=== PATIENT | male | born 1950 | race Caucasian/White ===

== ENCOUNTER → 2023-08-07 08:34 | Outpatient (REF) | payer MEDICARE, OTHER, SELFPAY ==
[2023-08-07 09:10] LABS: % Basophils 0.8 % (0-2); % Eosinophils 3.3 % (0-6); % Immature Granulocytes 0.5 % (0-0.5); % Lymphocytes 19.5 % (20.5-51.1); % Monocytes 9.9 % (1.7-9.3); Absolute Basophils 0.1 10^3/uL (0-0.2); Absolute Eosinophils 0.2 10^3/uL (0-0.7); Absolute Lymphocytes 1.2 10^3/uL (1.2-3.4); Absolute Monocytes 0.6 10^3/uL (0.1-0.6); Absolute Neutrophils 4.1 10^3/uL (1.4-6.5); Hemoglobin 13.3 g/dL (13.0-18.0); Mean Corp Hgb Conc. 34.1 g/dL (33.0-37.0); Mean Corpuscular Hgb 30.4 pg (27.0-31.0); Mean Platelet Volume 8.4 fL (7.4-10.4); Nucleated Red Blood Cells % 0 % (-); Platelet Count 262 10^3/uL (130-400); Red Blood Cell Count 4.38 10^6/uL (4.70-6.10); Red Cell Dist. Width 13.5 % (11.5-14.5); White Blood Cell Count 6.2 10^3/uL (4.8-10.8)
[2023-08-07 10:41] LABS: ALT (SGPT) 39 U/L (0-50); AST (SGOT) 32 U/L (17-59); Albumin 4.4 g/dl (3.5-5.0); Alkaline Phosphatase 86 U/L (38-126); Blood Urea Nitrogen 17 mg/dl (9-20); Calcium 9.6 mg/dl (8.4-10.2); Carbon Dioxide 26 mmol/L (22-30); Chloride 104 mmol/L (98-107); Glucose 121 mg/dl (70-99); HDL Cholesterol 36 mg/dl; Iron 101 ug/dl (49-181); LDL Cholesterol, Calculated 87 mg/dl; Potassium 5.1 mmol/L (3.5-5.1); Sodium 137 mmol/L (135-145); Total Bilirubin 0.8 mg/dl (0.2-1.3); Total Cholesterol 136 mg/dl (50-199); Total Protein 7.2 g/dl (6.3-8.2); Triglyceride 68 mg/dl (10-149); Very Low Density Lipoprotein 13 mg/dl (0-30); eGFR > 60.00
[2023-08-07 10:51] LABS: Percent Saturation 34 % (20-50); Total Iron Binding Capacity 290 ug/dl (261-462)
[2023-08-07 10:58] LABS: TSH Reflex To Free T4 2.29 uIU/ml (0.47-4.68)
[2023-08-07 11:29] LABS: Ferritin 63.8 ng/ml (17.9-464.0)
[2023-08-07 11:30] LABS: Glycohemoglobin (HgbA1c) 6.7 % (4.0-5.6)
== END ==
LOC: REG 08:34
PROVIDERS: ATTENDING PHYSICIAN Family Medicine
DX: E11.69 Type 2 diabetes mellitus with other specified complication (principal); E78.2 Mixed hyperlipidemia; D64.9 Anemia, unspecified; Z13.29 Encounter for screening for other suspected endocrine disorder
CPT/HCPCS: 36415; 80053; 80061; 82728; 83036; 83540; 83550; 84443; 85025

== ENCOUNTER → 2024-04-27 09:09 | Outpatient (REF) | payer MEDICARE, OTHER, SELFPAY ==
[2024-04-27 10:02] LABS: % Basophils 0.8 % (0-2); % Eosinophils 2.7 % (0-6); % Immature Granulocytes 0.5 % (0-0.5); % Lymphocytes 14.8 % (20.5-51.1); % Monocytes 10.3 % (1.7-9.3); % Neutrophils 70.9 % (42.2-75.2); Absolute Basophils 0.1 10^3/uL (0-0.2); Absolute Eosinophils 0.2 10^3/uL (0-0.7); Absolute Lymphocytes 0.9 10^3/uL (1.2-3.4); Absolute Monocytes 0.7 10^3/uL (0.1-0.6); Absolute Neutrophils 4.5 10^3/uL (1.4-6.5); Hematocrit 39.3 % (39.0-52.0); Hemoglobin 13.5 g/dL (13.0-18.0); Mean Corp Hgb Conc. 34.4 g/dL (33.0-37.0); Mean Corpuscular Hgb 31.4 pg (27.0-31.0); Mean Corpuscular Volume 91.4 fL (80.0-94.0); Mean Platelet Volume 8.4 fL (7.4-10.4); Nucleated Red Blood Cells % 0 % (-); Platelet Count 254 10^3/uL (130-400); Red Cell Dist. Width 13.4 % (11.5-14.5); White Blood Cell Count 6.3 10^3/uL (4.8-10.8)
[2024-04-27 10:36] LABS: ALT (SGPT) 22 U/L (0-50); AST (SGOT) 21 U/L (17-59); Albumin 4.2 g/dl (3.5-5.0); Alkaline Phosphatase 70 U/L (38-126); Blood Urea Nitrogen 15 mg/dl (9-20); Calcium 9.7 mg/dl (8.4-10.2); Carbon Dioxide 29 mmol/L (22-30); Chloride 107 mmol/L (98-107); Glucose 127 mg/dl (70-99); HDL Cholesterol 38 mg/dl; LDL Cholesterol, Calculated 98 mg/dl; Potassium 5.4 mmol/L (3.5-5.1); Sodium 143 mmol/L (135-145); Total Bilirubin 0.8 mg/dl (0.2-1.3); Total Cholesterol 149 mg/dl (50-199); Total Protein 6.7 g/dl (6.3-8.2); Triglyceride 68 mg/dl (10-149); Very Low Density Lipoprotein 13 mg/dl (0-30); eGFR > 60.00
[2024-04-27 11:35] LABS: Glycohemoglobin (HgbA1c) 6.5 % (4.0-5.6)
== END ==
LOC: REG 09:09
PROVIDERS: ATTENDING PHYSICIAN Family Medicine
DX: E11.69 Type 2 diabetes mellitus with other specified complication (principal); E78.2 Mixed hyperlipidemia; D64.9 Anemia, unspecified
CPT/HCPCS: 36415; 80053; 80061; 83036; 85025

== ENCOUNTER → 2024-05-14 11:34 | Outpatient (REF) | payer MEDICARE, OTHER, SELFPAY ==
[2024-05-14 14:38] LABS: Blood Urea Nitrogen 14 mg/dl (9-20); Calcium 9.3 mg/dl (8.4-10.2); Carbon Dioxide 30 mmol/L (22-30); Chloride 101 mmol/L (98-107); Glucose 170 mg/dl (70-99); Potassium 4.6 mmol/L (3.5-5.1); Sodium 139 mmol/L (135-145); eGFR > 60.00
== END ==
LOC: REG 11:34
PROVIDERS: ATTENDING PHYSICIAN Family Medicine
DX: E87.5 Hyperkalemia (principal)
CPT/HCPCS: 36415; 80048

== ENCOUNTER → 2024-10-21 09:31 | Outpatient (REF) | payer MEDICARE, OTHER, SELFPAY ==
[2024-10-21 10:51] LABS: % Basophils 0.7 % (0-2); % Eosinophils 2.5 % (0-6); % Immature Granulocytes 0.4 % (0-0.5); % Lymphocytes 15.7 % (20.5-51.1); % Monocytes 9.5 % (1.7-9.3); % Neutrophils 71.2 % (42.2-75.2); Absolute Basophils 0.1 10^3/uL (0-0.2); Absolute Eosinophils 0.2 10^3/uL (0-0.7); Absolute Lymphocytes 1.1 10^3/uL (1.2-3.4); Absolute Monocytes 0.7 10^3/uL (0.1-0.6); Absolute Neutrophils 4.8 10^3/uL (1.4-6.5); Hematocrit 40.2 % (39.0-52.0); Hemoglobin 13.6 g/dL (13.0-18.0); Mean Corp Hgb Conc. 33.8 g/dL (33.0-37.0); Mean Corpuscular Hgb 30.9 pg (27.0-31.0); Mean Corpuscular Volume 91.4 fL (80.0-94.0); Mean Platelet Volume 8.6 fL (7.4-10.4); Nucleated Red Blood Cells % 0 % (-); Platelet Count 291 10^3/uL (130-400); Red Cell Dist. Width 13.6 % (11.5-14.5); White Blood Cell Count 6.8 10^3/uL (4.8-10.8)
[2024-10-21 11:32] LABS: ALT (SGPT) 27 U/L (0-50); AST (SGOT) 23 U/L (17-59); Albumin 4.3 g/dl (3.5-5.0); Alkaline Phosphatase 80 U/L (38-126); Blood Urea Nitrogen 15 mg/dl (9-20); Calcium 9.7 mg/dl (8.4-10.2); Carbon Dioxide 30 mmol/L (22-30); Chloride 109 mmol/L (98-107); Glucose 126 mg/dl (70-99); HDL Cholesterol 28 mg/dl; LDL Cholesterol, Calculated 85 mg/dl; Sodium 144 mmol/L (135-145); Total Bilirubin 1.1 mg/dl (0.2-1.3); Total Cholesterol 128 mg/dl (50-199); Total Protein 7.2 g/dl (6.3-8.2); Triglyceride 77 mg/dl (10-149); Very Low Density Lipoprotein 15 mg/dl (0-30); eGFR > 60.00
[2024-10-21 11:57] LABS: PSA, Total - Screen 3.54 ng/ml (0.0-4.0); TSH Reflex To Free T4 2.45 uIU/ml (0.47-4.68)
[2024-10-21 12:57] LABS: Glycohemoglobin (HgbA1c) 6.8 % (4.0-5.6)
== END ==
LOC: REG 09:31
PROVIDERS: ATTENDING PHYSICIAN Family Medicine
DX: E11.69 Type 2 diabetes mellitus with other specified complication (principal); D64.9 Anemia, unspecified; E78.2 Mixed hyperlipidemia; Z12.5 Encounter for screening for malignant neoplasm of prostate; Z13.29 Encounter for screening for other suspected endocrine disorder
CPT/HCPCS: 36415; 80053; 80061; 83036; 84443; 85025; G0103

== ENCOUNTER → 2024-11-18 11:51 | Outpatient (REF) | payer MEDICARE, OTHER, SELFPAY | LOC: RAD 11:51 | PROVIDERS: ATTENDING PHYSICIAN Registered Nurse; FAMILY PHYSICIAN Family Medicine | DX: M48.061 Spinal stenosis, lumbar region without neurogenic claudication (principal) | CPT/HCPCS: 72110 ==

== ENCOUNTER → 2024-11-22 11:39 | Outpatient (REF) | payer MEDICARE, OTHER, SELFPAY | LOC: RAD 11:39 | PROVIDERS: ATTENDING PHYSICIAN Physical Medicine & Rehabilitation; FAMILY PHYSICIAN Family Medicine | DX: R10.31 Right lower quadrant pain (principal) | CPT/HCPCS: 73502 ==

== ENCOUNTER → 2024-12-14 12:52 | Outpatient (REF) | payer MEDICARE, OTHER, SELFPAY | LOC: REG 12:52 | PROVIDERS: ATTENDING PHYSICIAN Family Medicine | DX: R97.20 Elevated prostate specific antigen [PSA] (principal) | CPT/HCPCS: 36415; 84153; 84154 ==

== ENCOUNTER → 2025-03-02 11:22 | Outpatient (REF) | payer MEDICARE, OTHER, SELFPAY | LOC: REG 11:22 | PROVIDERS: ATTENDING PHYSICIAN Specialist; FAMILY PHYSICIAN Family Medicine | DX: R97.20 Elevated prostate specific antigen [PSA] (principal) | CPT/HCPCS: 36415; 84153; 84154 ==

== ENCOUNTER → 2025-05-02 10:54 | Outpatient (REF) | payer MEDICARE, OTHER, SELFPAY ==
[2025-05-02 11:28] LABS: Hematocrit 42.6 % (39.0-52.0); Hemoglobin 14.2 g/dL (13.0-18.0); Mean Corp Hgb Conc. 33.3 g/dL (33.0-37.0); Mean Corpuscular Volume 92.4 fL (80.0-94.0); Nucleated Red Blood Cells % 0 % (-); Platelet Count 300 10^3/uL (130-400); Red Cell Dist. Width 13.5 % (11.5-14.5)
[2025-05-02 12:22] LABS: ALT (SGPT) 25 U/L (0-50); AST (SGOT) 22 U/L (17-59); Albumin 4.4 g/dl (3.5-5.0); Alkaline Phosphatase 85 U/L (38-126); Blood Urea Nitrogen 17 mg/dl (9-20); Calcium 9.5 mg/dl (8.4-10.2); Carbon Dioxide 27 mmol/L (22-30); Chloride 105 mmol/L (98-107); Glucose 138 mg/dl (70-99); HDL Cholesterol 43 mg/dl; LDL Cholesterol, Calculated 80 mg/dl; Potassium 4.7 mmol/L (3.5-5.1); Sodium 139 mmol/L (135-145); Total Protein 7.1 g/dl (6.3-8.2); Very Low Density Lipoprotein 14 mg/dl (0-30); eGFR > 60.00
[2025-05-02 12:26] LABS: Glycohemoglobin (HgbA1c) 7.1 % (4.0-5.9)
== END ==
LOC: REG 10:54
PROVIDERS: ATTENDING PHYSICIAN Family Medicine
DX: E11.69 Type 2 diabetes mellitus with other specified complication (principal); E78.2 Mixed hyperlipidemia; D64.9 Anemia, unspecified
CPT/HCPCS: 36415; 80053; 80061; 83036; 85025